=== PATIENT | male | born 1965 | race Caucasian/White ===

== ENCOUNTER 2019-11-22 14:25 | Outpatient (RCR) | payer OTHER, SELFPAY ==
--- NOTE | 2019-11-22 16:05 | PTOPEVAL ---
PHYSICAL THERAPY EVALUATION Thank you for referring Seth Jennings to [facility]. PT eval testing revealed negative occulomotor, BPPV, and balance testing. He may have had an episode of labyrinthitis which appears to be resolving. He is concerned in regards to his sudden hearing loss in his R ear. He may benefit from hearing testing and VNG by an bisque kiln drawer for further diagnostic testing. I agree with the evaluation and that skilled PT is not needed at this time. Referring Physician Date Admitting Provider: Attending Provider: Rishabh Iqbal, Referring Provider: *PT Outpatient Evaluation Start: 11/22/19 14:43 Freq: Status: Active Protocol: Document 11/22/19 14:43 SOM (Rec: 11/22/19 16:05 SOM [id number]) Therapy Assessment Status Assessment Status Assessment Status Evaluation Outpatient Past Medical History Past Medical History Source of Past Medical History Patient Neurological History Hx Neurological Disorders No Significant History Cardiovascular History Hx Cardiac Disorders No Significant History Respiratory History Hx Other Respiratory Disorders Yes: seasonal allergies Gastrointestinal History Hx Gastrointestinal Disorders No Significant History Genitourinary History Hx Genitourinary Disorders No Significant History Musculoskeletal History Hx Musculoskeletal Disorders No Significant History Endocrine History Hx Endocrine Disorders No Significant History Evaluation Information Problem Diagnosis vertigo Onset 11/18/19 Subjective Information severe episode of dizziness - Query Text:As Reported By Patient/ out of town - unable to lift Family head off of the pillow - went to local ED - had a episode of vomiting - received meclazine and valium - took both and - then just meclazine and - nothing today . Still feeling ~15% symptoms - affecting R hearing as well . Was on L side went turned on back - extremely dizzy - also heard a tingling kind of sound in R ear. Later a humming sound - now unable to hear phone with R ear. Supine to sit - some increase in room spinning/movement - sitting in car traveling - will have similar symptoms. Quick turns with head - will also provoke symptoms. Saw Dr Iqbal yesterday - rec
== END 2020-02-20 23:59 | disposition home or self-care (01) ==
LOC: ANHHIPT 14:25
PROVIDERS: PCP Internal Medicine; Visit Provider Internal Medicine
DX: R42 Dizziness and giddiness (principal)
CPT/HCPCS: 97161

== ENCOUNTER 2019-12-16 07:53 | Outpatient (CLI) | payer OTHER, SELFPAY | END 2019-12-16 07:54 | disposition home or self-care (01) | LOC: ANHAUDIO 07:54 | PROVIDERS: PCP Internal Medicine; Visit Provider Internal Medicine | DX: H90.5 Unspecified sensorineural hearing loss (principal); R42 Dizziness and giddiness; R55 Syncope and collapse | CPT/HCPCS: 92537; 92540; 92546 ==

== ENCOUNTER → 2021-07-24 00:07 | Outpatient (CLI) | payer OTHER, SELFPAY ==
[2021-07-24 13:08] LABS: SARS-CoV-2 RNA PCR Negative
== END ==
PROVIDERS: PCP Internal Medicine; Visit Provider Surgery
DX: Z01.812 Encounter for preprocedural laboratory examination (principal); Z20.822 Contact with and (suspected) exposure to COVID-19
CPT/HCPCS: C9803; U0003; U0005

== ENCOUNTER 2021-07-28 00:52 | Day surgery (SDC) | payer OTHER, SELFPAY ==
[2021-07-19 14:36] VITALS: BMI 22.1
--- NOTE | 2021-07-19 14:38 | SUR.PREOP ---
Report to the Outpatient Waiting Room, entrance under the green pavilion located off [facility], at time _1030 on date _07/28/21 . OR Time: _1230 . - You and your visitor will be asked a series of questions to screen for COVID 19 for your protection. - A mask is required within the hospital. Preoperative COVID Testing Requirements: No COVID Test needed if: (proof is required; if not received patient will have Rapid Test prior to entry) - Patient has received COVID Vaccine at least 14 days prior to procedure date or - Patient has positive COVID test result within last 90 days of surgery date. COVID Test needed if above criteria is not met If not COVID vaccinated a COVID test must be conducted within 72 hours of surgery and patient is asked to isolate self from time of testing until procedure. You will go to the [facility] for your COVID testing. The [facility] is located at the corner of [address] [facility]. You will only be called if COVID results are positive and your surgeon may reschedule your elective surgery date. Patients may have clear liquids (water, carbonated beverages, clear teas, apple juice) until 3 hours prior to surgery with a maximum of 20 ounces. - No food from midnight until time of surgery - Infants may have breast milk until 4 hours before surgery, infant formula 6 hours prior to surgery. - Children will be allowed to drink immediately following surgery. If applicable, please bring a bottle or sippy cup to assist with drinking. Juice, water, soda, and popsicles are readily available. For infants on formula, please bring formula the day of surgery. Pacifiers are allowed. Take the following medications with a SIP of water the morning of surgery: ____n/a Medications to discontinue per physician n/a Date to take last dose___n/a Please no make-up, nail salvadorean, hairspray, perfume, deodorant, or body powder the day of surgery. No jewelry (including any body piercings) or valuables the day of surgery, leave them at home. Please take a shower or bath the night before, or the morning of, surgery with an antibacterial soap. Wear comfortable, loose fitting clothing. Children are encouraged to wear pajamas. - Jewelry must be removed prior to entering the operating room. Rings and piercings that are not removed may be cut off. - The hospital will not accept responsibility for valuables. - Please leave all valuables, including medications, at home the day of surgery. If you are going home after surgery, a licensed coach tour driver must drive you home. - NO public transportation without another adult. - We recommend that an adult stay with you for 24 hours following discharge. - We also recommend that you do not drive, make important decision, drink alcoholic beverages, or take any drugs that were not prescribed by your health care provider for at least 24 hours after your discharge time. For Pediatric surgeries, we recommend two adults accompany the child home (only one inside the building at this time). One visitor will be allowed to accompany the patient into the hospital. Patients visitor will be instructed to remain with patient at all times or leave the building. We will allow the visitor to come back to the postoperative area when patient is ready. Follow any additional instructions given to you from your surgeon. Telephone instructions given to _courtney leos and asked if any additional questions and then verbalized understanding. Patient advised to call surgeon office or pre surgery nurse liaison [phone] if any additional questions.
--- NOTE | 2021-07-27 15:12 | PM.SD2 ---
Same Day Admit/Disch: HPI History of Present Illness Chief complaint: Subcutaneous Mass Rt Thigh Narrative: Seth Jennings is a 55 year old male who has had a small nodule on the back of his right thigh for several years. In the last year, it has gotten larger and is occasionally painful. He was seen in the office and noted to have a subcutaneous nodule on the back of his right thigh I most likely an inclusion cyst. He is taken to surgery now for excision. 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 Family History Family History Mother Heart attack Father Malignant neoplasm of prostate Rupture, aorta Social History Social History Smoking status: Never smoker Alcohol intake: current Drinks per week: 3 Substance use: never Living arrangements: with family Spiritual care concerns: No Same Day Admit/Disch: Med Pre-admit Medications Home Medications Medication Instructions Recorded Confirmed Type ibuprofen 600 mg PO Q6H PRN #14 tablet 07/28/21 Rx tramadol 50 mg PO Q6H PRN #10 tablet 07/28/21 Rx Exam Const: General: comfortable, no acute distress, alert and awake HENMT: Head: normocephalic and atraumatic Mouth: Yes Normal oral and palatal mucosa present Eyes: Conjunctivae: conjunctivae normal Pupils: Equal, round and reactive pupils present EOM: EOMs intact bilaterally Neck: Neck: normal visual inspection, no lymphadenopathy and nontender Resp: Effort & Inspection: normal respiratory effort Auscultation: clear to auscultation bilaterally Cardio: Rate: regular rate Rhythm: regular rhythm Heart sounds: no gallops, no murmurs and no rubs GI: Inspection: non-distended GI Palp: Yes Soft to palpation, No Tenderness to palpation present (GI), No Hepatomegaly present and No Splenomegaly present Skin: Lesions: no lesions Rashes: no rashes Neuro: General: no focal motor deficits and CN's II-XI intact bilaterally Cranial nerves: Yes Equal, round and reactive pupils present, Yes Bilaterally intact EOM present, Yes facial symmetry and Yes Midline tongue present Speech: normal speech Motor exam (neuro): 5/5 motor strength present throughout and Motor abnormalities not present Extrem: General: no clubbing, cyanosis or edema and edema Left lower extremity: hip/thigh (He has a 2.2 x 1.5 cm nodule posterior thigh) Details: other (Nodule is smooth but firm, mobile, seems superficial) Psych: Affect: normal affect Thought process: Normal thought process present Insight: Good insight present (Psych) DS: Summary Time Spent with Patient Time attestation: Total time spent providing and/or coordinating discharge services: DS: Admitting Diagnosis Discharge Date July 28, 2021 Admitting Diagnosis Subcutaneous nodule right posterior thigh most likely inclusion cyst-plan to excise under anesthesia as an outpatient. The procedure the risks benefits were discussed. All questions were answered. He understands and agrees to go ahead. DS: Discharge Diagnosis Discharge Diagnosis (1) Nodule of skin of lower extremity: Code(s): R22.40 - Localized swelling, mass and lump, unspecified lower limb Status: Chronic Discharge Plan Discharge Patient Disposition: Home, Self-Care Discharge Instructions: Ambulate 3-4 x per day and as tolerated. No lifting over 15-20lbs for 1 week May bathe or shower. Stairs are OK. May drive a car in 2 days. Call for bleeding, severe pain, other significant change in condition. Follow-up with Dr. Roe in 2 weeks. We will call you with the pathology report when it has returned. Stand Alone Forms
[2021-07-28 07:12] VITALS: BP 110/78; PULSE 78; RESP 16; TEMP 36.6; O2SAT 99
--- NOTE | 2021-07-28 08:34 | P.PNAN_ITS ---
Anes - Initial Pre Proc Eval Procedure: Operation Date: 07/28/21 09:00 Proposed Procedures p Excision of Subcutaneous Nodule of Right Posterior Thigh - Candido Roe MD Date/Time: 07/28/21 08:34 Surgeon: Candido Roe MD Pre Op Diagnosis: Subcutaneous Mass Rt Thigh Patient Data Age: 55 Gender: M Height: 1.73 m Weight: 63.2 kg Last Vital Signs Temp 36.6 C 07/28/21 07:12 Pulse 78 07/28/21 07:12 Resp 16 07/28/21 07:12 BP 110/78 07/28/21 07:12 Pulse Ox 99 07/28/21 07:12 Allergies Allergy/AdvReac Type Severity Reaction Status Date / Time No Known Allergies Allergy Verified 07/28/21 07:23 Home Medications Medication Instructions Recorded Confirmed Type No Home Medications 06/15/21 07/19/21 History Patient hx anesthesia problems: none Family hx anesthesia problems: none Results Review: All pre-operative results and documents have been reviewed as part of the pre-operative evaluation. [facility] Past Medical History Medical History No pertinent past medical history Surgical History Surgical History Status post excision of acoustic neuroma [facility]' 2020 Family History Family History Mother Heart attack Father Malignant neoplasm of prostate Rupture, aorta Social History Social History Smoking status: Never smoker Alcohol intake: current Drinks per week: 3 Substance use: never Living arrangements: with family Spiritual care concerns: No Anes - Eval Final PreProcedure Day of Procedure 07/28/21 08:34 Patient weight: normal Heart: regular rate and rhythm Lungs: clear to auscultation Airway: Mallampati scale class II Neurological: alert and oriented Last oral intake: >/= 8 hours ASA classification: I Emergent: no Anesthetic plan: proceed Anesthesia type and monitoring: general GIVS and standard monitoring Results Review: All pre-operative results and documents have been reviewed as part of the pre-operative evaluation. Informed Consent: The patient's anesthetic plan and its attendant risks and benefits were discussed with the patient/family/POA. Questions were solicited and answers provided to the satisfaction of the patient/family/POA.
--- NOTE | 2021-07-28 08:42 | WPDHPUPDATE1 ---
History and Physical Update Update Date/Time: 07/28/21 08:42 History and Physical has been reviewed, including an updated exam of the patient. There are NO changes in the patient's condition. Risks, benefits, and alternatives have been discussed and questions answered. Patient agrees to proceed with procedure.
--- NOTE | 2021-07-28 09:06 | WPDHPUPDATE1 ---
History and Physical Update Update Date/Time: 07/28/21 09:06 History and Physical has been reviewed, including an updated exam of the patient. There are NO changes in the patient's condition. Risks, benefits, and alternatives have been discussed and questions answered. Patient agrees to proceed with procedure.
[2021-07-28] MEDS: ceFAZolin 2 GM/D5W 50 ML 2 GM/50 ML BAG IVPB (09:08)
[2021-07-28 09:52] VITALS: BP 117/79; PULSE 86; RESP 12; O2SAT 99
[2021-07-28] MEDS: LACTATED RINGERS 1,000 ML 30 ML IV CONT (09:52)
--- NOTE | 2021-07-28 10:15 | W.PM.PROC2 ---
Procedure Note - Detailed Date of Procedure 07/28/21 Pre-op Diagnosis Subcutaneous Mass Rt Thigh Post-op Diagnosis Same Procedure Performed Excision of 2.8 cm subcutaneous mass right posterior thigh with 2 mm margins (3.2cm excision); 8 cm layered closure Surgeon Candido Roe MD Motorized [employer] Lieutenant Liana [employer] Anesthesia General (G IV S) and Local (0.25% Marcaine with epinephrine) Indications Patient had a subcutaneous nodule on the back of his right thigh for a number of years. Within the last 12 months, it has been enlarging and is occasionally painful or tender. He is taken to surgery now for excision Findings Firm smooth subcutaneous nodule with skin involvement. Description of Procedure The patient was checked in the preoperative holding area. He was then taken to surgery and anesthesia was introduced. He was in a left lateral decubitus position. The right posterior thigh was prepped and draped. An 8 cm ellipse was drawn on the skin taking care to excise the lesion without entering it or shelling it out. Local anesthesia was infiltrated in the area of the anticipated incision. Incision was made and dissection was carried through the skin and around the lesion staying in the subcutaneous with at least 1 or 2 mm of margin all around the lesion. It was completely excised with the subcutaneous fascia at its posterior margin. It was passed off to pathology after being measured. The wound was made hemostatic with the cautery. Yogesh's fascia was closed with interrupted 3-0 Vicryl suture. Subcuticular interrupted 4-0 Vicryl skin sutures were placed. The skin was finally closed with a running 4-0 Monocryl skin suture. Wound was dressed with Exofin surgical adhesive. The patient was awakened and taken to recovery in good condition. Sponge and needle counts were correct x2. Estimated Blood Loss -5 Drains No Packing No Pathology Yes (Subcutaneous mass) Complications No immediate complications Condition Stable Disposition Same day
[2021-07-28 10:20] VITALS: BP 107/74; PULSE 75; RESP 16; O2SAT 100
[2021-07-28 10:44] VITALS: BP 128/89; PULSE 71; RESP 16
== END 2021-07-28 10:47 | disposition home or self-care (01) ==
PROVIDERS: PCP Internal Medicine; Visit Provider Surgery
PROC: (CPT 11404; principal; 2021-07-28 09:00)
DX: L72.11 Pilar cyst (principal)
CPT/HCPCS: 11404; 12034; 88304; C9803; J0690; J2250; J2704; J3010; J7120; U0003; U0005